=== PATIENT | male | born 1975 | race African-American/Black ===

== ENCOUNTER 2024-06-29 05:16 | Day surgery (SDC) | payer BC ==
[~2024-06-29] VITALS: Ht 177.8 cm; Wt 83.6 kg
[~2024-06-29 05:16] MED LIST: CEPHALEXIN500 M1 PO; LORTAB 5/500 501 TAB PO; LR 1,000 ML IV SCH; NAPROSYN500 MG PO; NO HOME MEDICATIONS; Ondansetron 4 MG/2 ML VIAL IV PRN
[2024-06-29] MEDS ORDERED: MOBIC15 MG PO (05:40)
[2024-06-29 06:03] VITALS: BP 116/81; PULSE 57; TEMP 97
[2024-06-29 07:24] VITALS: TEMP 98
[2024-06-29 07:35] VITALS: BP 113/77; PULSE 63
--- NOTE | 2024-06-29 07:35 | NUR ---
PT ARRIVES TO BAY #1. SBA TO RECLINER WITH TWO STAFF. PT IS ALERT AND IVF PATENT. 0748 SNACK GIVEN. PT TOLERATED SNACK WELL. PT DENIES GAS, NAUSEA OR PAIN. PT DOES REPORT LIGHTHEADEDNESS BUT IT WAS GONE AT 0757. 0800 PT WAS GIVEN DISCHARGE INSTRUCTIONS. QUESTIONS INVITED AND ANSWERED. DR LOPEZ SEE PT. PT GETTING DRESSED. 0815 PT TAKEN TO V IN WHEELCHAIR.
[2024-06-29 07:45] VITALS: BP 114/89; PULSE 50
[2024-06-29 08:00] VITALS: BP 124/89; PULSE 50
== END 2024-06-29 08:15 | disposition home or self-care (01) ==
LOC: SDCO 05:16
DX: Z12.11 Encounter for screening for malignant neoplasm of colon (principal)
CPT/HCPCS: J2704; J7120